=== PATIENT | female | born 1970 | race Caucasian/White ===

== ENCOUNTER 2017-02-13 17:56 | Emergency (ER) | payer BC ==
[~2017-02-13] VITALS: Ht 154.9 cm; Wt 99.0 kg
[2017-02-13] MEDS ORDERED: PHENYLEPHRINE NASAL 1%, 15ML SPRAY ONE ×2 (18:57→19:58)
[2017-02-13] MEDS ORDERED: LIDOCAINE 1%-EPI 1:100K, 20ML SQ ONE (19:00)
[2017-02-13] MEDS ORDERED: PHENYLEPHRINE NASAL 1%, 30ML DROPS NAS ONE (19:00)
[2017-02-13 19:19] LABS: BLOOD UREA NITROGEN 13 mg/dL (7-18)
[2017-02-13] MEDS ORDERED: SILVER NITRATE STICK TP ONE ×2 (19:44→20:00)
[2017-02-13] MEDS ORDERED: LIDOCAINE 1%, 20ML ONE (19:55)
[2017-02-13 21:30] VITALS: BP 166/108
== END 2017-02-13 21:32 | disposition home or self-care (01) ==
LOC: ED 19:33
DX: R04.0 Epistaxis (principal); I10 Essential (primary) hypertension; E66.9 Obesity, unspecified; Z88.0 Allergy status to penicillin
CPT/HCPCS: 30901; 36415; 80048; 82040; 85025

== ENCOUNTER 2021-04-23 03:43 | Emergency (ER) | payer BC ==
[~2021-04-23] VITALS: Ht 162.6 cm; Wt 98.4 kg
[2021-04-23 03:49] VITALS: BP 159/88
== END 2021-04-23 03:55 | disposition left against medical advice (07) ==
LOC: ED 03:49
DX: R04.0 Epistaxis (principal); Z53.21 Procedure and treatment not carried out due to patient leaving prior to being seen by health care provider